=== PATIENT | female | born 1975 | race Two or more races ===

== ENCOUNTER 2021-01-26 12:04 | Day surgery (SDC) | payer OTHER ==
[~2021-01-26 12:04] MED LIST: DIOVAN PO
== END 2021-01-26 22:35 | disposition home or self-care (01) ==
LOC: CIR.AMB 12:04
PROVIDERS: ATTEND Obstetrics & Gynecology
DX: N84.0 Polyp of corpus uteri (principal); N93.8 Other specified abnormal uterine and vaginal bleeding; Z20.822 Contact with and (suspected) exposure to COVID-19